=== PATIENT | male | born 1950 | race Caucasian/White ===

== ENCOUNTER 2023-01-19 04:51 | Emergency (ER) | payer OTHER ==
[~2023-01-19] VITALS: Ht 190.5 cm; Wt 102.3 kg
[2023-01-19 06:00] LABS: Basophils # (auto) 0.1 10 ^3/uL (0-0.2); Basophils % (auto) 1.1 % (0.0-2.0); Eosinophils # (auto) 0.1 10 ^3/uL (0-0.8); Eosinophils % (auto) 1.5 % (0.0-7.0); Hematocrit 47.8 % (41.0-53.0); Hemoglobin 16.3 g/dL (13.5-17.5); Lymphocytes % (auto) 14.1 % (10.0-50.0); Mean Corpuscular Hemoglobin 32.3 pg (28.0-32.0); Mean Corpuscular Hgb Conc. 34.1 g/dL (32.0-36.0); Monocytes # (auto) 0.4 10 ^3/uL (0-1.3); Monocytes % (auto) 5.9 % (0.0-12.0); Neutrophils # (auto) 5.3 10 ^3/uL (1.6-8.6); Neutrophils % (auto) 77.4 % (37.0-80.0); Nucleated Red Blood Cells % 0.1 %; Red Blood Cells 5.03 10^6/uL (4.5-5.90); Red Cell Distribution Width 13.9 % (11.8-14.3); White Blood Cell 6.8 10^3/uL (4.4-10.8)
[2023-01-19 06:02] VITALS: PULSE 58; RESP 16; O2SAT 97
[2023-01-19 06:16] LABS: Albumin 3.6 g/dL (3.2-4.8); Alkaline Phosphatase 54 U/L (46-116); Anion Gap 7.5 (5-15); BUN/Creatinine Ratio 14.3 (10.0-20.0); Bilirubin, Total 2.4 mg/dL (0.2-1.0); Blood Urea Nitrogen 15 mg/dL (9-23); Calcium 8.7 mg/dL (8.7-10.4); Carbon Dioxide 24.5 mmol/L (20-30); Chloride 105 mmol/L (98-107); Glucose 93 mg/dL (74-106); Magnesium 1.9 mg/dL (1.6-2.6); Potassium 3.3 mmol/L (3.5-5.1); Sodium 137 mmol/L (136-145); Total Protein 5.9 g/dL (5.7-8.2)
[2023-01-19 06:17] LABS: INR 1.43 (0.9-1.15); Partial Thromboplastin Time 29.2 SEC (24.5-34.5); Prothrombin Time 14.7 sec (9.3-11.8)
[2023-01-19 06:33] LABS: Alanine Aminotransferase 1800 U/L (7-40); Aspartate Aminotransferase 2261 U/L (13-40)
[2023-01-19 09:12] VITALS: PULSE 60; RESP 13; O2SAT 95
[2023-01-19 12:31] VITALS: BP 118/76; PULSE 52; RESP 13; TEMP 97.8; O2SAT 97
== END 2023-01-19 12:49 | disposition home or self-care (01) ==
LOC: ER 04:51 → EDBD 04:51 → ER 12:48
DX: R55 Syncope and collapse (principal); K76.9 Liver disease, unspecified; S00.211A Abrasion of right eyelid and periocular area, initial encounter; I10 Essential (primary) hypertension; I25.2 Old myocardial infarction; R06.02 Shortness of breath; W18.09XA Striking against other object with subsequent fall, initial encounter; Y93.89 Activity, other specified; Y92.89 Other specified places as the place of occurrence of the external cause; Y99.8 Other external cause status
CPT/HCPCS: 36415; 70450; 71045; 72125; 76705; 80053; 83735; 83880; 84484; 85025; 85610; 85730; 93005